=== PATIENT | female | born 1955 | race Caucasian/White ===

== ENCOUNTER → 2023-08-12 13:19 | Outpatient (CLI) | payer OTHER, MEDICARE, SELFPAY ==
--- NOTE | 2023-08-12 13:24 | DI.RAD.S_ITS ---
PROCEDURE: XR HAND LT MIN 3V INDICATIONS: Hand pain TECHNIQUE: 3 views of the hand(s) acquired. COMPARISON: None. FINDINGS: Bones: No fractures or dislocations. There is mild, diffuse interphalangeal joint space narrowing and degenerative changes at the 1st CMC joint. Carpal bones are normally aligned. No suspicious bony lesions. No periarticular osteopenia or bony erosions. Soft tissues: No suspicious soft tissue calcifications. IMPRESSION: No acute bony abnormality. Mild osteoarthritis. No findings to suggest erosive arthritis. Dictated by: Alysa Gordon M.D. on 08/13/2023 at 16:24 Approved by: Alysa Gordon M.D. on 08/13/2023 at 16:25
== END ==
PROVIDERS: Referring Provider Nurse Practitioner Family; Visit Provider Nurse Practitioner Family
DX: M19.042 Primary osteoarthritis, left hand (principal); M79.642 Pain in left hand
CPT/HCPCS: 73130